=== PATIENT | male | born 1955 | race Caucasian/White ===

== ENCOUNTER 2018-01-03 09:13 | Emergency (ER) | payer MEDICAID ==
[2018-01-03 09:19] VITALS: TEMP 98.1
--- NOTE | 2018-01-03 09:32 | EDPHY ---
H & P Stated Complaint: rolled right ankle walking dogs this morning Time Seen by Provider: 01/03/18 09:24 HPI/ROS: CHIEF COMPLAINT: Right ankle injury HISTORY OF PRESENT ILLNESS: The patient presents to the ED with complaints of right ankle pain, swelling and deformity. The patient fell while walking his dogs earlier this morning. The patient is unable to walk back and a crawl on his knees. As a result he sustained multiple abrasions to his patient did not sustain additional injury. He denies any numbness or weakness. He has iced the lower extremity since the injury. He denies prior history of injury or surgery. REVIEW OF SYSTEMS: A comprehensive 10 point review of systems is otherwise negative aside from elements mentioned in the history of present illness. Source: Patient Exam Limitations: No limitations - Personal History Current Tetanus/Diphtheria Vaccine: No Current Tetanus Diphtheria and Acellular Pertussis (TDAP): No - Medical/Surgical History Hx Asthma: No Hx Chronic Respiratory Disease: No Hx Diabetes: No Hx Cardiac Disease: No Hx Renal Disease: No Hx Cirrhosis: No Hx Alcoholism: No Hx HIV/AIDS: No Hx Splenectomy or Spleen Trauma: No Other PMH: none reported - Social History Smoking Status: Never smoked - Physical Exam Exam: General Appearance: Alert, no distress Head: Atraumatic Eyes: Pupils equal, round, reactive ENT, Mouth: No hemotympanum, no oral trauma Neck: Nontender, trachea midline Respiratory: No chest wall tender, subcutaneous air, lungs clear bilaterally Cardiovascular: Regular rate and rhythm Abdomen: Abdomen is soft and nontender, pelvis stable Skin: Decreased capillary refill bilaterally presumably secondary to the icing the patient has been performing, abrasions of bilateral knee caps Back: No midline T/L/S pain Extremities: Soft tissue swelling noted to the right ankle, tenderness and crepitus noted Neurological: 5/5 strength bilateral lower extremities, sensation intact to light touch Constitutional: Initial Vital Signs Temperature (C) 36.7 C 01/03/18 09:17 Heart Rate 69 01/03/18 09:17 Respiratory Rate 20 01/03/18 09:17 Blood Pressure 134/83 H 01/03/18 09:17 O2 Sat (%) 97 01/03/18 09:17 O2 Delivery Mode Room Air Allergies/Adverse Reactions: erythromycin base [From Erythrocin] Allergy (Verified 01/03/18 09:16) Home Medications: Medication Instructions Recorded Hydrocodone/APAP 5/325 [Albertson 1 - 2 each PO Q6 PRN #20 tab 01/03/18 5/325] Medical Decision Making - Diagnostics Imaging Results: Imaging Impressions Ankle X-Ray 01/03/18 09:25 Impression: 1. Trimalleolar fracture right ankle with lateral displacement. Post-reduction left ankle x-ray x-ray: Images reviewed by myself. Improved line of trimalleolar fracture. Procedures: Procedure: Splint placement. A ortho glass three-way posterior splint was applied to the body location by myself. After application of the splint I returned and re-examined the patient. The splint was adequately immobilizing the joint and distal to the splint the patient's circulation and sensation was intact. ED Course/Re-evaluation: The patient presents to the ED with a close trimalleolar fracture. The patient has superficial abrasions. His tetanus shot was updated in the ED. I did reduce the patient's fracture for improved alignment. Consultation was made Dr. Nathaniel Piedra. Patient will be discharged home and follow up as an outpatient this week or ORIF. The patient is noted to be neurovascularly intact in the emergency department. Differential Diagnosis: Differential diagnosis considered includes fracture, sprain, dislocation Departure - Departure Disposition: Home, Routine, Self-Care Clinical Impression: Trimalleolar fracture of ankle, closed Qualifiers: Encounter type: initial encounter Laterality: right Qualified Code(s): S82.851A - Displaced trimalleolar fracture of right lower leg, initial encounter for closed fracture Condition: Good Instructions: Ankle Fracture (DC) Additional Instructions: 1. No weight on the right leg please walk with crutches. 2. Please follow up with Dr. Nathaniel Piedra this week to schedule surgery for your ankle fracture. 3. Albertson as needed for pain 4. Ice 20-30 minutes at a time 4 to 5 times a day for next several days. 5. Please elevate extremity above your heart when sleeping at night. Referrals: Nathaniel Piedra MD [Medical Doctor] - As per Instructions Prescriptions: Hydrocodone/APAP 5/325 [Albertson 5/325] 1 - 2 each PO Q6 PRN #20 tab PRN Reason: for pain
[2018-01-03 10:48] VITALS: BP 135/79; PULSE 64; RESP 18; O2SAT 96
== END 2018-01-03 10:47 | disposition home or self-care (01) ==
PROC: 0QSJXZZ Reposition Right Fibula, External Approach (ICD-10-PCS; principal; 2018-01-03)
DX: S82.851A Displaced trimalleolar fracture of right lower leg, initial encounter for closed fracture (principal); W01.0XXA Fall on same level from slipping, tripping and stumbling without subsequent striking against object, initial encounter; Y93.K1 Activity, walking an animal

== ENCOUNTER 2018-01-15 09:02 | Day surgery (SDC) | payer MEDICAID ==
[2018-01-15] MEDS ORDERED: ceFAZolin 2 GM/SWFI 2 GM/20 ML SYR IVP ONE (09:17)
[2018-01-15] MEDS ORDERED: LR 1,000 ML IV ONE (09:22)
[2018-01-15] MEDS ORDERED: PROPOFOL/EMULSION 500 MG/50 ML BOTTLE IV ONE ×2 (09:58→11:38)
[2018-01-15] MEDS ORDERED: MIDAZOLAM 2 MG/2 ML VIAL IVP ONE (10:00)
[2018-01-15] MEDS ORDERED: BUPIVACAINE 0.25% 30 ML SDV ONE (10:01)
--- NOTE | 2018-01-15 10:01 | PDANEPAE ---
ANE History of Present Illness Healthy 62 year old for ORIF Right ankle. ANE Past Medical History - Cardiovascular History Hx Hypertension: No Hx Arrhythmias: No Hx Chest Pain: No Hx Coronary Artery / Peripheral Vascular Disease: No Hx CHF / Valvular Disease: No Hx Palpitations: No - Pulmonary History Hx COPD: No Hx Asthma/Reactive Airway Disease: No Hx Recent Upper Respiratory Infection: No Hx Oxygen in Use at Home: No Hx Sleep Apnea: No Sleep Apnea Screening Result - Last Documented: Negative - Neurologic History Hx Cerebrovascular Accident: No Hx Seizures: No Hx Dementia: No - Endocrine History Hx Diabetes: No - Renal History Hx Renal Disorders: No - Liver History Hx Hepatic Disorders: No - Neurological & Psychiatric Hx Hx Neurological and Psychiatric Disorders: No - Cancer History Hx Cancer: No - Congenital Disorder History Hx Congenital Disorders: No - GI History Hx Gastrointestinal Disorders: No - Other Health History Other Health History: none - Chronic Pain History Chronic Pain: No - Surgical History Prior Surgeries: na ANE Review of Systems Review of systems is: negative Review of Systems: - Exercise capacity METS (RN): 5 METS ANE Patient History - Allergies Allergies/Adverse Reactions: erythromycin base [From Erythrocin] Allergy (Verified 01/09/18 10:53) gi upset - Home Medications Home Medications: Herbals/Supplements -Info Only 01/09/18 [Last Taken 01/09/18] - Smoking Hx Smoking Status: Never smoked - Family Anes Hx Family Hx Anesthesia Complications: none ANE Labs/Vital Signs - Vital Signs Height: 172.72 cm Weight: 63.503 kg ANE Physical Exam - Airway Neck exam: FROM Mallampati Score: Class 2 Mouth exam: normal dental/mouth exam - Pulmonary Pulmonary: no respiratory distress - Cardiovascular Cardiovascular: regular rate and rhythym - ASA Status ASA Status: I ANE Anesthesia Plan Anesthesia Plan: GA w LMA
[2018-01-15] MEDS ORDERED: fentaNYL 250 MCG/5 ML INJ ONE (10:02)
[2018-01-15] MEDS ORDERED: BACITRACIN 50,000 UNITS/10 ML SYR IRR ONE (10:02)
[2018-01-15] MEDS ORDERED: POLYMYXIN B SULFATE 500,000 UNIT/10 ML SYR IRR ONE (10:02)
[2018-01-15 10:03] VITALS: PULSE 65
--- NOTE | 2018-01-15 10:36 | PDHPUP ---
History & Physical Update H&P update statement: This history and physical update is based on an assessment of the patient which was completed after admission or registration (within 24 hours), but prior to the surgery/procedure. H&P update: no change in patient's condition since H&P completed
[2018-01-15] MEDS ORDERED: oxyCODONE IR 5 MG TAB PO PRN (11:05)
[2018-01-15] MEDS ORDERED: NALOXONE HCL 0.4 MG/ML INJ IVP PRN (11:05)
[2018-01-15] MEDS ORDERED: ONDANSETRON 4 MG/2 ML VIAL IVP PRN (11:05)
[2018-01-15] MEDS ORDERED: PROMETHAZINE HCL 25 MG/ML INJ IVP PRN (11:05)
[2018-01-15] MEDS ORDERED: HYDROCODONE/APAP 5/325 TAB PO PRN (11:05)
[2018-01-15] MEDS ORDERED: HYDROmorphONE/DILAUDID 1 MG/ML INJ IVP PRN (11:05)
[2018-01-15] MEDS ORDERED: LABETALOL HCL 5 MG/ML 20 ML MDV IVP PRN (11:05)
[2018-01-15] MEDS ORDERED: DEXAMETHASONE 4 MG/ML VIAL IVP PRN (11:05)
[2018-01-15] MEDS ORDERED: LR 500 ML IV PRN (11:05)
[2018-01-15] MEDS ORDERED: ALBUTEROL 3 ML DEYVIAL IH PRN (11:05)
[2018-01-15] MEDS ORDERED: PHENYLEPHRINE HCL 100 MCG/ML SYR IVP PRN (11:05)
[2018-01-15] MEDS ORDERED: MEPERIDINE 25 MG/ML SYR IVP PRN (11:05)
--- NOTE | 2018-01-15 13:12 | POSTOPPROG ---
Post Op Note Date of Operation: 01/15/18 Surgeon: Juanita Lepe Sound Effects Technician: Juanita Lepe, PAC Anesthesiologist: Adriana Johnston Pre-op Diagnosis: Right Ankle Trimalleolar Fracture and Dislocation Post-op Diagnosis: Right Ankle Trimalleolar Fracture and Dislocation Indication: Right Ankle Fracture Procedure: Right ankle ORIF of fx/dislocation & superficial peroneal n transposition Inf/Abcess present in the surg proc area at time of surgery?: No Depth: Deep Incisional (Fascial) EBL: Minimal Complications: None.
[2018-01-15] MEDS ORDERED: fentaNYL 100 MCG/2 ML INJ ONE (13:22)
[2018-01-15] MEDS: fentaNYL 100 MCG/2 ML INJ IVP PRN ×2 (13:24→13:49)
--- NOTE | 2018-01-15 13:52 | POSTANESTH ---
Post Anesthetic Evaluation Cardiovascular Status: Normal, Stable Respiratory Status: Normal, Stable Level of Consciousness/Mental Status: Can Participate in Eval Pain Control: Adequate, Prn Tx Ordered Nausea/Vomiting Control: Adequate, Prn Tx Ordered Complications Possibly Related to Anesthesia: None Noted
[2018-01-15] MEDS ORDERED: oxyCODONE IR 5 MG TAB ONE (14:22)
[2018-01-15 14:25] VITALS: BP 137/84
[2018-01-15 14:44] VITALS: RESP 18
[2018-01-15 14:47] VITALS: TEMP 98.4; O2SAT 95
[2018-01-15] MEDS ORDERED: ONDANSETRON 4 MG/2 ML VIAL ONE (14:49)
--- NOTE | 2018-01-15 15:02 | GOP ---
[f rep st] OPERATIVE REPORT DATE OF OPERATION: 01/15/2018 SURGEON: Nathaniel Piedra MD STAINED GLASS GLAZIER: Juanita Lepe PA-C. ANESTHESIA: General. ANESTHESIOLOGIST: Adriana Johnston MD PREOPERATIVE DIAGNOSIS: Closed right ankle trimalleolar fracture dislocation. POSTOPERATIVE DIAGNOSIS: 1. Right ankle trimalleolar fracture dislocation. 2. Incarcerated right superficial peroneal nerve. 3. Right ankle hemarthrosis. 4. Right ankle anterior syndesmosis avulsion. PROCEDURE PERFORMED: 1. Open reduction, internal fixation of right trimalleolar fracture dislocation. 2. Right ankle repair of anterior syndesmosis avulsion injury. 3. Right ankle arthrotomy with evacuation of hematoma, debridement and irrigation. 4. Right ankle anterior transposition and neurolysis of superficial peroneal nerve. FINDINGS: Comminuted and highly unstable right ankle fracture dislocation. The medial malleolus was with a high oblique type fracture pattern and there was comminution posteriorly. Lateral fracture involved an anterior segmental portion of the syndesmosis, which was completely separate from the fibular shaft and lateral malleolus segments. Intra-articular space was without any chondral defects. There was organized clot and hemarthrosis. The saphenous vein was directly over the medial malleolus fracture was found to be intact. This was protected throughout surgery. Laterally, the superficial peroneal nerve had a very distal and low transition from lateral compartment, to anterior compartment. As a result, it was directly draped over the fracture site. Due to the location of the nerve as well as its tethering directly over the lateral malleolus and fibula, neurolysis and anterior transposition was required for the surgery. Bone quality was marginal for a patient of his age and sex. Anatomic reduction was achieved. Appropriate fixation and reduction was achieved throughout. SPECIMENS: None. ESTIMATED BLOOD LOSS: Minimal. INDICATIONS: This is a 62-year-old male who suffered a fall on his right lower extremity resulting in fracture dislocation on 01/03/18. The patient was evaluated at the [facility] ER and placed in a splint after reduction of his dislocation. He remained NWB RLE with ice and elevation and, once his swelling was appropriate, he was deemed ready for definitive surgery. The risks, benefits, alternatives were discussed with the patient. All questions answered prior to surgery. He provided a signed and witnessed informed consent which was placed in his chart. DESCRIPTION OF PROCEDURE: The patient was identified in the preop holding area and his right ankle was signed and designated as the operative site. The patient was confirmed in left lower extremity BERNARDA hose and SCDs. He was treated with 2 g IV prophylactic cefazolin per protocol and taken back to the operating room where the Anesthesia service provided general anesthesia. He was then transferred to a radiolucent OR table. Both upper extremities were placed on well-padded arm boards. The left lower extremity was wrapped around the fibula and heel and ankle foam eggcrate padding and placed on a well-padded OR table. Right lower extremity was wrapped proximally with cast padding and a nonsterile tourniquet, a bump was placed under the right hip and the right lower extremity was prepped and draped in the usual sterile manner. Mini C-arm was also prepped and draped and used in a sterile manner for the surgery. Esmarch exsanguination was used to inflate the tourniquet to 250 mmHg. Initial work was medially. With a minimally curvilinear type incision over the medial malleolus and anterior joint line region, the incision was placed over a length of approximately 4 cm. Full-thickness dermal incision was created and careful dissection was taken down through the subcutaneous fat. The saphenous vein was identified and a small branch was coagulated with Bovie cautery device. Saphenous vein was then mobilized and retracted posteriorly. The fracture site was identified and interposed fascia and soft tissues were removed from the fracture site. A rongeur and curette were used to prepare the fracture site and remove all soft tissues as well as fracture hematoma. The area was irrigated and dissection was then carried anterior. In a subperiosteal manner, a small arthrotomy was created along the anteromedial corner of the ankle. Retraction was placed on the anterior capsule and, with elevation of the capsule and some distraction of the ankle, good visualization of the tibiotalar chondral surfaces was achieved. There were no signs of an obvious cartilage defect. There was obvious organized hematoma and hemarthrosis within the joint and this was removed with a small rongeur. The ankle joint was then copiously irrigated with sterile saline and suction in order to remove all remaining debris from the ankle joint. Once this was completed, the medial malleolar fixation was achieved. Using a rqjfr-ap-cazri reduction tenaculum, reduction was achieved in an anatomic position with my faculty research assistant's help. This was then held in position and the fracture was formally stabilized with 2 parallel 4.0 mm partially threaded cancellous screws from the small frag set. Excellent compression and alignment were achieved. Once this was completed, the wound was copiously irrigated with sterile saline and then closed in layers. Then, 2-0 Vicryl was used to close the fascial layer as well as the fascial rupture portion at the fracture site. Then, 3-0 Monocryl was used to close the deep dermal layer of the skin. A 3-0 nylon horizontal mattress running trauma stitch was used to formally close the skin. At the lateral side of the ankle, a 10 cm incision was placed over the lateral malleolus extending from just distal to the lateral malleolar tip proximally along the subcutaneous border of the fibula. Full-thickness dermal incision was made with a #15 blade. Over the distal 3 or 4 cm, full-thickness skin flaps were created. More proximally, careful dissection was utilized in order to identify if the superficial peroneal nerve was in a more distal crossing position and, in fact, it was quite distal and crossed the fibula directly at the level of the fracture site, approximately 2-1/2 to 3 cm superior to the distal tip of the malleolus. Due to its location and relatively tight tether to the lateral side of the fibula, careful neurolysis was performed. The torn interposed soft tissues from the fracture and trauma were carefully debrided and /or dissected away from the nerve. More proximally, the fascia was divided and the nerve was mobilized circumferentially in order to be transposed anteriorly. A vessel loop was placed around the superficial peroneal nerve and gentle retraction was utilized in order to protect the nerve and move it out of the way of the surgery for the fracture fixation and treatment. Once this was appropriately mobilized, it was ready for transposition after fixation. Great care was taken to avoid any impact or damage to the nerve throughout the fracture portion of the case. Using a small Verbrugge clamp as well as lobster claw and gyono-xm-dmiwx reduction clamps, the multiple pieces of fracture within this segment were carefully reduced. The anterior segmental portion of the fracture that involved or included the insertion point of the anterior syndesmosis, was also found to be completely fractured and avulsed anteriorly. As a result, the fracture was fixated in a three-part manner. Initially, the fixation between the proximal shaft and distal malleolus segments was not possible with interfragmentary compression screw due to the comminution anteriorly and large segmental piece. As a result, reduction was achieved and held with a Verbrugge clamp. Length and rotation was confirmed using the C-arm as well as direct visualization. A 7 hole 1/3 tubular plate was then contoured to the lateral aspect of the fibula and curved to wrap-around the distal tip of the fibula in order to achieve additional fixation in this quite distal fracture pattern. The plate was then fixated proximally with 3 bicortical screws (3.5 mm) from the small fragment set. It was next fixated to the distal metaphyseal fibular segment with 3 additional screws, the central of which was locking. The other 2 were 4 0 cancellous. Appropriate fixation was achieved throughout. This plate then provided a neutralization plate laterally. Next, the anterior segmental piece was reduced into position, thereby repairing the syndesmotic ligaments anteriorly. This was then fixated down to the fracture zone with a single interfragmentary compression screw placed in an anterior to posterior oblique manner. It did traverse the fracture line of this segmental piece in a perpendicular manner. Once this was appropriately fixated and confirmed to be stable, drill filings that had been captured during the surgery as well as small segmental and comminuted pieces, were cleansed of all soft tissues. This drill filings slurry as well as the segments that were captured during the surgery, were then used to pack into this comminuted fibular fracture site. There were multiple fracture lines and each of these were packed carefully around the plate and/or through the single open drill hole. Once the local bone grafting was completed, the wound was copiously irrigated with sterile saline. Care was taken to avoid any disruption of the bone graft site. Closure was then begun. Multiple 2-0 Vicryl sutures were used to reapproximate the deep fascial layer. The superficial peroneal nerve was transposed anteriorly and kept anterior within the skin flaps in order to avoid any impact during closure of the skin. Then, 3-0 Monocryl sutures were used to close the deep dermal layer. Once this layer was closed, it was noted that the superficial peroneal nerve was just anterior to the plate and incision line and spanned this zone from the from the proximal tip of this incision distally to approximately 2 cm superior to the distal tip of the incision and malleolus. Finally, great care was taken to close the skin with 3-0 nylon running horizontal mattress trauma stitch with care taken to only place this through the dermal layer and avoiding impact to the nerve that had been transposed. Prior to closure of the skin, the tourniquet was dropped and found to be with appropriate hemostasis. The skin edges were carefully anesthetized with local anesthetic. Sterile postoperative surgical dressings were applied. A posterior and stirrup short-leg splint was applied. The ankle was assured to be stabilized in minor Henry position and neutral plantar flexion. The Anesthesia service then took over to wake the patient up. TOURNIQUET TIME: 104 minutes at 250 mmHg. DRAINS: None. IMPLANTS: Synthes small fragment screws and plate. All of the equipment was from the small fragment set. There was a combination of both locking and nonlocking screws placed through the plate. Medially, there were two 4-0 cancellous partially threaded screws. There was a total of 2 screws medially and 7 screws laterally. COMPLICATIONS: None. DISPOSITION: The patient was extubated and transferred to PACU in stable condition. Please note: If this patient will proceed some day to have hardware removal, great care must be taken to protect the superficial peroneal nerve which is sitting just anterior to the plate and incision line. This nerve was required to be transposed due to its location laterally and tethers along the fascia between the lateral and anterior compartments. /[id number]/MODL MTDD
== END 2018-01-15 15:25 | disposition home or self-care (01) ==
LOC: FSGY 09:02
PROVIDERS: ATTEND Orthopaedic Surgery
PROC: 0QSJ04Z Reposition Right Fibula with Internal Fixation Device, Open Approach (ICD-10-PCS; principal; 2018-01-15 10:30)
PROC: 0SSF04Z Reposition Right Ankle Joint with Internal Fixation Device, Open Approach (ICD-10-PCS; principal; 2018-01-15 10:30)
PROC: 0QSG04Z Reposition Right Tibia with Internal Fixation Device, Open Approach (ICD-10-PCS; principal; 2018-01-15 10:30)
PROC: 01S Peripheral Nervous System, Reposition (ICD-10-PCS; principal; 2018-01-15 10:30)
DX: S82.851A Displaced trimalleolar fracture of right lower leg, initial encounter for closed fracture (principal); S93.431A Sprain of tibiofibular ligament of right ankle, initial encounter; S94.8X1A Injury of other nerves at ankle and foot level, right leg, initial encounter; W01.198A Fall on same level from slipping, tripping and stumbling with subsequent striking against other object, initial encounter; Y93.01 Activity, walking, marching and hiking; Y92.828 Other wilderness area as the place of occurrence of the external cause
CPT/HCPCS: C1713; J0171; J0690; J2250; J2405; J2704; J3010